=== PATIENT | male | born 1950 | race Two or more races ===

== ENCOUNTER 2023-02-27 09:17 | Emergency (ER) | payer SELFPAY ==
[~2023-02-27] VITALS: Ht 185.4 cm; Wt 89.7 kg
[2023-02-27 10:02] LABS: BASOPHILS 0.5 % (0-2); EOSINOPHILS 1.3 % (0-6); HEMATOCRIT 42.8 % (35.0-50.0); HEMOGLOBIN 14.4 g/dL (12.0-18.0); LYMPHOCYTES 31.5 % (24-44); MCH 31.1 (27-36); MCHC 33.6 g/dl (30-36); MCV 92.4 fl (81-99); MONOCYTES 9.6 % (0-12); NEUTROPHILS 57.1 % (39-80); PLATELET COUNT 202 K/uL (140-440); RBC 4.63 M/ul (4.3-5.7)
[2023-02-27 10:16] LABS: INR 1.12 (0.80-1.30)
[2023-02-27 10:21] LABS: ALBUMIN 3.3 g/dL (3.4-5.0); ALBUMIN/GLOBULIN RATIO 1.03 (1.1-2.4); ANION GAP 10.7 (7-21); BILIRUBIN, TOTAL 0.5 ng/dL (0.2-1.0); BUN/CREATININE RATIO 13.68 (6.0-28.6); CALCIUM 8.7 mg/dL (8.5-10.1); CREATININE, SERUM 0.95 mg/dL (0.70-1.30); POTASSIUM 3.7 mmol/L (3.5-5.1); PROTEIN, TOTAL 6.5 g/dL (6.4-8.2)
[2023-02-27 10:55] LABS: INFLUENZA B NAA NEGATIVE (NEGATIVE); RESPIRATORY SYNCYTIAL VIR NAA NEGATIVE (NEGATIVE)
[2023-02-27 12:53] VITALS: BP 151/85
--- NOTE | 2023-02-27 21:32 | EKG ---
[facility] [address] [facility] [place] [address] Signed Normal sinus rhythm Normal ECG No previous ECGs available Confirmed by Shelly Cortés MD () on 02/27/2023 9:32:09 PM Electronically Signed By: SHELLY CORTÉS MD 02/27/232131 PATIENT NAME: TENZIN ADDISON Electrocardiogram DATE OF : 54 PHYSICIAN: SHELLY CORTÉS MD REPORT #: [id number] REPORT IS CONFIDENTIAL AND NOT TO BE RELEASED WITHOUT AUTHORIZATION
== END 2023-02-27 12:53 | disposition short-term general hospital (02) ==
LOC: ED 09:17
PROVIDERS: Emergency Medicine
DX: S06.5XAA Traumatic subdural hemorrhage with loss of consciousness status unknown, initial encounter (principal); X58.XXXA Exposure to other specified factors, initial encounter; Z20.822 Contact with and (suspected) exposure to COVID-19
CPT/HCPCS: 36415; 70450; 70496; 70498; 80053; 85025; 85610; 85730; 87502; 93005; 93010; 99285-25; C9803; J1953; Q9967; U0002